=== PATIENT | male | born 1965 | race Caucasian/White ===

== ENCOUNTER 2024-02-15 08:54 | Outpatient (CLI) | payer BC, SELFPAY ==
--- NOTE | 2024-02-15 11:30 | NEURO_ITS ---
Impression: # Complains of right foot pain. # Normal Nerve Conduction Study. # No Tarsal Tunnel Syndrome. # Left EDB is neurogenic on Needle/EMG exam # Clinical correlation recommended; Higher involvement needs to be ruled out. Nerve Conduction Studies Anti Sensory Summary Table Stim Site NR Peak (ms) P-T Amp (?V) Site1 Site2 Delta-P (ms) Dist (cm) Ronaldo (m/s) Left Sup Fibular Anti Sensory (Ant Lat Mall) 14 cm 3.3 21.6 14 cm Ant Lat Mall 3.3 16.0 48 Right Sup Fibular Anti Sensory (Ant Lat Mall) 14 cm 3.1 18.5 14 cm Ant Lat Mall 3.1 16.0 52 Left Sural Anti Sensory (Lat Mall) Calf 3.6 16.0 Calf Lat Mall 3.6 16.0 44 Right Sural Anti Sensory (Lat Mall) Calf 4.3 12.7 Calf Lat Mall 4.3 17.0 40 Motor Summary Table Stim Site NR Onset (ms) O-P Amp (mV) Site1 Site2 Delta-0 (ms) Dist (cm) Ronaldo (m/s) Left Lateral Plantar Motor (ADM) Med Mall 4.6 1.9 Right Lateral Plantar Motor (ADM) Med Mall 4.3 1.1 Left Peroneal Motor (Vastus Med) Ankle 4.2 3.1 Popit Ankle 9.9 41.0 41 Popit 14.1 3.4 Right Peroneal Motor (Vastus Med) Ankle 3.8 4.9 Popit Ankle 9.4 41.0 44 Popit 13.2 4.8 Left Tibial Motor (Abd Chen Brev) Ankle 4.5 2.3 Knee Ankle 8.4 41.0 49 Knee 12.9 1.9 Right Tibial Motor (Abd Chen Brev) Ankle 4.4 6.0 Knee Ankle 9.2 41.0 45 Knee 13.6 4.4 F Wave Studies NR F-Lat (ms) L-R F-Lat (ms) Left Peroneal (Mrkrs) (EDB) 57.30 0.78 Right Peroneal (Mrkrs) (EDB) 56.53 0.78 Left Tibial (Mrkrs) (Abd Hallucis) 56.72 1.22 Right Tibial (Mrkrs) (Abd Hallucis) 57.94 1.22 EMG Side Muscle Nerve Root Ins Act Fibs Amp Dur Recrt Comment Right AntTibialis Dp Br Fibular L4-5 Nml Nml Nml Nml Nml Right Gastroc Tibial S1-2 Nml Nml Nml Nml Nml Right Fibularis Long Sup Br Fibular L5-S1 Nml Nml Nml Nml Nml Right Flex Dig Long Tibial L5-S2 Nml Nml Nml Nml Nml Right Ext Dig Brev Dp Br Fibular L5, S1 Nml Nml Nml Nml Nml Right QuadratusFem QuadFemoris L4-5, S1 Nml Nml Nml Nml Nml Left AntTibialis Dp Br Fibular L4-5 Nml Nml Nml Nml Nml Left Gastroc Tibial S1-2 Nml Nml Nml Nml Nml Left Fibularis Long Sup Br Fibular L5-S1 Nml Nml Nml Nml Nml Left Flex Dig Long Tibial L5-S2 Nml Nml Nml Nml Nml Left Ext Dig Brev Dp Br Fibular L5, S1 Nml Nml Decr >12ms +1 Left QuadratusFem QuadFemoris L4-5, S1 Nml Nml Nml Nml Nml MTDD
== END 2024-02-15 08:55 | disposition home or self-care (01) ==
PROVIDERS: PCP Internal Medicine; Visit Provider Podiatrist Foot & Ankle Surgery
DX: G60.9 Hereditary and idiopathic neuropathy, unspecified (principal)
CPT/HCPCS: 95886; 95911